=== PATIENT | female | born 1950 | race Caucasian/White ===

== ENCOUNTER 2016-08-17 11:02 | Day surgery (SDC) | payer BC ==
[2016-08-17 11:33] VITALS: BMI 22.3
[2016-08-17] MEDS ORDERED: PROPOFOL 20 ML ONE (12:21)
[2016-08-17] MEDS ORDERED: LIDOCAINE HCL/PF 2% SDV 5ML VIAL ONE (12:21)
[2016-08-17 12:57] VITALS: TEMP 98.2
[2016-08-17 14:21] VITALS: BP 127/66; PULSE 61
--- NOTE | 2016-08-19 11:20 | PATH ---
Surgical Pathology Report Patient Name: MARJORIE FUENTES [facility]. Rec. #: [id number] /Age/Gender: 1950 (Age: 65) / F Account: [id number] Location: U-ENDOSCOPY Taken: 08/17/2016 Received: 08/17/2016 Reported: 08/18/2016 Physicians: Ankit Boyd M.D. Specimen(s) Received A: BX STOMACH B: BX DISTAL ESOPHAGUS Clinical History Epigastric pain, abnormal CT scan Nodular gastritis, erythema distal esophagus, hiatal hernia, thick gastric fold Final Diagnosis A. STOMACH, BIOPSY: GASTRIC OXYNTIC MUCOSA WITH MODERATE CHRONIC GASTRITIS WITH FOCAL CHANGES SUGGESTIVE OF PPI EFFECT. IMMUNOSTAIN FOR H. PYLORI IS NEGATIVE FOR ORGANISMS. B. ESOPHAGUS, DISTAL, BIOPSY: SQUAMOUS EPITHELIUM WITH CHRONIC INFLAMMATION AND REFLUX TYPE CHANGES. NO COLUMNAR EPITHELIUM PRESENT (NO INTESTINAL METAPLASIA/GRISSOM'S ESOPHAGUS IDENTIFIED). Electronically Signed Emile Crabtree M.D. Gross Description A. Received in formalin, labeled "biopsy stomach" are 3 medley, irregular portions of soft tissue ranging from 0.4-0.5 cm in greatest dimension. The specimens are submitted in toto in one cassette. B. Received in formalin, labeled "biopsy distal esophagus" are 2 medley, irregular portions of soft tissue averaging 0.2 cm in greatest dimension. The specimens are submitted in toto in one cassette. /08/17/201608/17/2016
== END 2016-08-17 13:50 | disposition home or self-care (01) ==
LOC: JASU-ENDO 11:02
PROVIDERS: ATTEND Internal Medicine Gastroenterology
PROC: 0DB68ZX Excision of Stomach, Via Natural or Artificial Opening Endoscopic, Diagnostic (ICD-10-PCS; 2016-08-17)
PROC: 0DB38ZX Excision of Lower Esophagus, Via Natural or Artificial Opening Endoscopic, Diagnostic (ICD-10-PCS; principal; 2016-08-17 12:00)
DX: K29.70 Gastritis, unspecified, without bleeding (principal); K44.9 Diaphragmatic hernia without obstruction or gangrene; K21.0 Gastro-esophageal reflux disease with esophagitis
CPT/HCPCS: 88305-TC; 88342-TC

== ENCOUNTER 2016-11-02 07:43 | Day surgery (SDC) | payer BC ==
[2016-10-30 15:17] VITALS: BMI 22.3
[2016-11-02 09:02] VITALS: TEMP 98
[2016-11-02] MEDS ORDERED: PROPOFOL 20 ML ONE (09:04)
[2016-11-02 11:04] VITALS: BP 117/60; PULSE 60
--- NOTE | 2016-11-03 12:36 | PATH ---
Surgical Pathology Report Patient Name: MARJORIE FUENTES [facility]. Rec. #: [id number] /Age/Gender: 1950 (Age: 66) / F Account: [id number] Location: U-ENDOSCOPY Taken: 11/02/2016 Received: 11/02/2016 Reported: 11/03/2016 Physicians: Ankit Boyd M.D. Specimen(s) Received A: BX POLYP TRANSVERSE COLON B: BX POLYP CECUM C: BX POLYPS DESCENDING COLON D: BX SIGMOID COLON Clinical History Evaluate screening for malignant neoplasm of colon Colon polyps, diverticulosis, rule out microscopic colitis, hemorrhoids Final Diagnosis A. COLON, TRANSVERSE, BIOPSY: COLONIC MUCOSA WITH SURFACE MUCOSAL HYPERPLASTIC CHANGES. B. COLON, CECUM, BIOPSY: COLONIC MUCOSA WITH NO PATHOLOGIC CHANGES. NO ADENOMATOUS OR HYPERPLASTIC CHANGES IDENTIFIED. C. COLON, DESCENDING, BIOPSY: COLONIC MUCOSA WITH FOCAL SURFACE MUCOSAL HYPERPLASTIC CHANGES. D. COLON, SIGMOID, BIOPSY: COLONIC MUCOSA WITH LAMINA PROPRIA EDEMA. NO ACTIVE COLITIS, ARCHITECTURAL DISTORTION, GRANULOMATA, OR DYSPLASIA IDENTIFIED. NO MICROSCOPIC COLITIS IDENTIFIED (NO LYMPHOCYTIC OR COLLAGENOUS COLITIS IDENTIFIED). Electronically Signed Ruddy Curran M.D. Gross Description A. Received in formalin, labeled "biopsy transverse colon polyp" are 2 medley, irregular portions of soft tissue measuring 0.2 and 0.5 cm. in greatest dimension. The specimens are submitted in toto in one cassette. B. Received in formalin, labeled "biopsy cecum polyp" are 2 medley, irregular portions of soft tissue measuring 0.2 and 0.3 cm. in greatest dimension. The specimens are submitted in toto in one cassette. C. Received in formalin, labeled "biopsy descending colon polyp" are 5 medley, irregular portions of soft tissue ranging from 0.1-0.5 cm. in greatest dimension. The specimens are submitted in toto in one cassette. D. Received in formalin, labeled "biopsy sigmoid colon" is a medley, irregular portion of soft tissue measuring 0.3 cm. in greatest dimension. The specimen is submitted in toto in one cassette. 11/02/201611/02/2016
== END 2016-11-02 12:30 | disposition home or self-care (01) ==
LOC: JASU-ENDO 07:43
PROVIDERS: ATTEND Internal Medicine Gastroenterology
PROC: 0DBM8ZX Excision of Descending Colon, Via Natural or Artificial Opening Endoscopic, Diagnostic (ICD-10-PCS; 2016-11-02)
PROC: 0DBL8ZX Excision of Transverse Colon, Via Natural or Artificial Opening Endoscopic, Diagnostic (ICD-10-PCS; 2016-11-02)
PROC: 0DBN8ZX Excision of Sigmoid Colon, Via Natural or Artificial Opening Endoscopic, Diagnostic (ICD-10-PCS; 2016-11-02)
PROC: 0DBH8ZX Excision of Cecum, Via Natural or Artificial Opening Endoscopic, Diagnostic (ICD-10-PCS; principal; 2016-11-02 09:00)
DX: K57.30 Diverticulosis of large intestine without perforation or abscess without bleeding (principal); D12.0 Benign neoplasm of cecum; K64.8 Other hemorrhoids; D12.3 Benign neoplasm of transverse colon; D12.4 Benign neoplasm of descending colon
CPT/HCPCS: 88305-TC

== ENCOUNTER 2018-05-13 08:38 | Emergency (ER) | payer BC ==
[2018-05-13 08:45] VITALS: BP 140/52; PULSE 90; TEMP 99; BMI 21.6
--- NOTE | 2018-05-13 08:45 | PDOC ---
History of Present Illness - General Chief Complaint: Pain Stated Complaint: BODY ACHES Time Seen by Provider: 05/13/18 08:45 History Source: Patient Exam Limitations: No Limitations Past History - Past Medical History Allergies/Adverse Reactions: Allergies Allergy/AdvReac Type Severity Reaction Status Date / Time Penicillins Allergy Severe Rash Verified 05/13/18 08:41 Home Medications: Ambulatory Orders Albuterol Sulfate [Proair Respiclick] 90 mcg IH DAILY PRN 08/17/16 Aspirin [ASA -] 160 mg PO DAILY 08/17/16 Atorvastatin Ca [Lipitor] 10 mg PO HS 08/17/16 Mometasone/Formoterol [Dulera 100 Mcg/5 Mcg Inhaler] 2 inh IH BID PRN 08/17/16 Pantoprazole Sodium 40 mg PO DAILY 08/17/16 Anemia: No Asthma: Yes Cancer: No Cardiac Disorders: No CVA: No COPD: No CHF: No Dementia: No Diabetes: No GI Disorders: Yes (GASTRITIS, GERD) Disorders: No HTN: No Hypercholesterolemia: Yes Liver Disease: No Seizures: No Thyroid Disease: No - Surgical History Abdominal Surgery: No Appendectomy: No Cardiac Surgery: No Cholecystectomy: No Lung Surgery: No Neurologic Surgery: No Orthopedic Surgery: No - Suicide/Smoking/Psychosocial Hx Smoking Status: Yes Smoking History: Current every day smoker Have you smoked in the past 12 months: Yes Number of Cigarettes Smoked Daily: 5 Information on smoking cessation initiated: No 'Breaking Loose' booklet given: 06/19/14 Hx Alcohol Use: No Drug/Substance Use Hx: No Substance Use Type: None Hx Substance Use Treatment: No *Physical Exam - Vital Signs Last Vital Signs Temp Pulse Resp BP Pulse Ox 99 F 90 20 140/52 L 96 05/13/18 08:44 05/13/18 08:44 05/13/18 08:44 05/13/18 08:44 05/13/18 08:44 Moderate Sedation - Procedure Monitoring Vital Signs: Procedure Monitoring Vital Signs Temperature 99 F 05/13/18 08:44 Pulse Rate 90 05/13/18 08:44 Respiratory Rate 20 05/13/18 08:44 Blood Pressure 140/52 L 05/13/18 08:44 O2 Sat by Pulse Oximetry (%) 96 05/13/18 08:44 *DC/Admit/Observation/Transfer - Referrals Referrals: Lenny Bland MD [Primary Care Provider] - - Patient Instructions - Post Discharge Activity
[2018-05-13] MEDS ORDERED: KETOROLAC TROMETHAMINE 30 MG/1 ML VIAL IM ONE (09:17)
[2018-05-13] MEDS ORDERED: KETOROLAC TROMETHAMINE 30 MG/1 ML VIAL ONE (09:24)
--- NOTE | 2018-05-13 09:26 | PDOC ---
History of Present Illness - General Chief Complaint: Pain Stated Complaint: BODY ACHES Time Seen by Provider: 05/13/18 08:45 History Source: Patient Exam Limitations: No Limitations - History of Present Illness Initial Comments: 05/13/18 09:26 67 year old female with history of asthma, high cholesterol, Gerd, presents with reports of bodyaches since the end of February. States seen by pmd on multiple occasions for the same and diagnosed with arthritis. States given oxycodone and muscle relaxant with no relief of symptoms. Also reports cold symptoms for past week with no fever or chills. Taking robitussin with some relief of symptoms. Requesting bone scan or mri. Timing/Duration: other (2 months) Severity: moderate Modifying Factors: improves with: medication Associated Symptoms: reports: fever/chills Aspirin Received prior to arrival: Yes: no aspirin today Asa Contraindications(Core Measure): No: Allergy Beta Kenney Contraindications(Core Measure): Yes: Not Prescribed Beta Kenney Given by EMS(Core Measure): No Beta Kenney Taken at Home(Core Measure): No Beta Kenney Not Indicated at this Time(Core Measure): No Past History - Travel Traveled outside of the country in the last 30 days: No Close contact w/someone who was outside of country & ill: No - Past Medical History Allergies/Adverse Reactions: Allergies Allergy/AdvReac Type Severity Reaction Status Date / Time Penicillins Allergy Severe Rash Verified 05/13/18 08:41 Home Medications: Ambulatory Orders Albuterol Sulfate [Proair Respiclick] 90 mcg IH DAILY PRN 08/17/16 Aspirin [ASA -] 160 mg PO DAILY 08/17/16 Atorvastatin Ca [Lipitor] 10 mg PO HS 08/17/16 Mometasone/Formoterol [Dulera 100 Mcg/5 Mcg Inhaler] 2 inh IH BID PRN 08/17/16 Pantoprazole Sodium 40 mg PO DAILY 08/17/16 Diphenhydram/PE/Dm/Acetamin/GG [Mucinex Fast-Max Day-Nite Liq] 360 ml PO ASDIR # 1 bottle 05/13/18 Ibuprofen 200 mg PO TID #20 capsule 05/13/18 [place]-3S/Dha/Epa/Fish Oil/D3 [Pbeej-8-Gqyl Oil-Vit D3 Sftgl] 1 each PO ASDIR #1 bottle 05/13/18 Anemia: No Asthma: Yes Cancer: No Cardiac Disorders: No CVA: No COPD: No CHF: No Dementia: No Diabetes: No GI Disorders: Yes (GASTRITIS, GERD) Disorders: No HTN: No Hypercholesterolemia: Yes Liver Disease: No Seizures: No Thyroid Disease: No - Surgical History Abdominal Surgery: No Appendectomy: No Cardiac Surgery: No Cholecystectomy: No Lung Surgery: No Neurologic Surgery: No Orthopedic Surgery: No - Suicide/Smoking/Psychosocial Hx Smoking Status: Yes Smoking History: Current every day smoker Have you smoked in the past 12 months: Yes Number of Cigarettes Smoked Daily: 5 Information on smoking cessation initiated: No 'Breaking Loose' booklet given: 06/19/14 Hx Alcohol Use: No Drug/Substance Use Hx: No Substance Use Type: None Hx Substance Use Treatment: No Review of Systems - Review of Systems Constitutional: Yes: Fever, Weakness. No: Chills, Malaise HEENTM: Yes: Nose Congestion. No: Cataracts, Ear Discharge, Nose Pain, Hearing Loss, Throat Pain, Throat Swelling, Mouth Pain, Mouth Swelling Respiratory: No: Cough, Orthopnea, SOB at Rest, Stridor, Wheezing Cardiac (ROS): No: Lightheadedness, Palpitations, Syncope ABD/GI: No: Abdominal Distended, Blood Streaked Bowels, Constipated, Diarrhea, Difficulty Swallowing, Nausea, Poor Appetite, Poor Fluid Intake, Rectal Bleeding , Vomiting, Indigestion, Abdominal cramping : No: Burning, Dysuria, Hematuria, Pain, Urgency, Testicular Mass Musculoskeletal: No: Back Pain, Gout, Joint Pain, Muscle Weakness, Neck Pain Integumentary: No: Bruising, Erythema, Flushing, Lesions Neurological: No: Headache, Numbness, Paresthesia, Tingling, Tremors, Weakness Endocrine: No: Excessive Sweating, Intolerance to Heat, Increased Urine, Unexplained Weight Gain Hematologic/Lymphatic: No: Bleeding Diathesis *Physical Exam - Vital Signs Last Vital Signs Temp Pulse Resp BP Pulse Ox 99 F 90 20 140/52 L 96 05/13/18 08:44 05/13/18 08:44 05/13/18 08:44 05/13/18 08:44 05/13/18 08:44 - Physical Exam General Appearance: Yes: Nourished, Appropriately Dressed. No: Apparent Distress HEENT: positive: Pharynx Normal. negative: Tonsillar Exudate Neck: positive: Supple. negative: Lymphadenopathy (R), Lymphadenopathy (L) Respiratory/Chest: positive: Lungs Clear, Normal Breath Sounds. negative: Paradoxal Breathing Cardiovascular: positive: Regular Rhythm, Regular Rate Gastrointestinal/Abdominal: negative: Distended Rectal Exam: negative: heme positive stool Extremity: negative: Calf Tenderness, Erythema Neurologic: positive: clipper automatic II-XII NML intact, Fully Oriented, Alert Moderate Sedation - Procedure Monitoring Vital Signs: Procedure Monitoring Vital Signs Temperature 99 F 05/13/18 08:44 Pulse Rate 90 05/13/18 08:44 Respiratory Rate 20 05/13/18 08:44 Blood Pressure 140/52 L 05/13/18 08:44 O2 Sat by Pulse Oximetry (%) 96 05/13/18 08:44 Medical Decision Making - Medical Decision Making 05/13/18 09:30 67 year old female with history of asthma, high cholesterol, Gerd, presents with reports of bodyaches since the end of February Plan: analgesia referred to pmd for referral for bone scan rx: mucinex ibuprofen *DC/Admit/Observation/Transfer Diagnosis at time of Disposition: URI, acute - Discharge Dispostion Disposition: HOME Condition at time of disposition: Good Decision to Admit order: No - Prescriptions Prescriptions: Diphenhydram/PE/Dm/Acetamin/GG [Mucinex Fast-Max Day-Nite Liq] 360 ml PO ASDIR # 1 bottle Ibuprofen 200 mg PO TID #20 capsule [place]-3S/Dha/Epa/Fish Oil/D3 [Wtbwi-1-Nzbf Oil-Vit D3 Sftgl] 1 each PO ASDIR #1 bottle - Referrals Referrals: Lenny Bland MD [Primary Care Provider] - (Please call primary physician for appointment today ) - Patient Instructions Printed Discharge Instructions: Common Cold Additional Instructions: Please take medications as prescribed Drink plenty fluids for hydration - Post Discharge Activity
== END 2018-05-13 09:38 | disposition home or self-care (01) ==
LOC: JERFT 08:38 → JER 08:38 → JERFT 09:38
PROC: 3E0233Z Introduction of Anti-inflammatory into Muscle, Percutaneous Approach (ICD-10-PCS; principal; 2018-05-13)
DX: J06.9 Acute upper respiratory infection, unspecified (principal); M79.10 Myalgia, unspecified site; J45.909 Unspecified asthma, uncomplicated
CPT/HCPCS: 96372; 99281-25

== ENCOUNTER 2018-06-02 09:27 | Day surgery (SDC) | payer BC ==
[2018-06-01 17:39] VITALS: BMI 21.9
[~2018-06-02 09:27] MED LIST: LIDOCAINE HCL 1%, 10 MG/ML (20ML VIAL) INF ONE
[2018-06-02] MEDS ORDERED: LIDOCAINE HCL 1%, 10 MG/ML (20ML VIAL) ONE ×2 (09:46→10:30)
[2018-06-02] MEDS ORDERED: SUCCINYLCHOLINE CHLORIDE 200 MG/10 ML VIAL ONE (10:13)
[2018-06-02] MEDS ORDERED: PROPOFOL 20 ML ONE (10:13)
[2018-06-02] MEDS ORDERED: LIDOCAINE HCL 1%, 10 MG/ML (20ML VIAL) INF ONE (10:48)
[2018-06-02] MEDS ORDERED: LIDOCAINE HCL 1%, 10 MG/ML (50 mL VIAL) IJ ONE (10:48)
[2018-06-02] MEDS ORDERED: oxyCODONE HCL 5 MG TABLET PO PRN (11:08)
[2018-06-02] MEDS ORDERED: ONDANSETRON 4 MG/2 ML VIAL IVPUSH PRN (11:08)
[2018-06-02] MEDS ORDERED: LACTATED RINGERS SOLUTION 1,000 ML IV SCH (11:15)
--- NOTE | 2018-06-02 11:34 | OP ---
Operative Note - Note: Operative Date: 06/02/18 Pre-Operative Diagnosis: left sided headaches. Rule out temporal arteritis Operation: left temporal artery biopsy Post-Operative Diagnosis: Same as Pre-op Surgeon: Jacob Mcnamara Anesthesia: Fractional Estimated Blood Loss (mls): 10 Operative Report Dictated: Yes
--- NOTE | 2018-06-02 11:34 | HP ---
Admitting History and Physical - Admission Chief Complaint: Left sided headaches. Sent from rhemotologists office for temporal artery biopsy to rule out temporal arteritis Limitations to Obtaining History: No Limitations - Smoking History Smoking history: Current every day smoker Have you smoked in the past 12 months: Yes Aproximately how many cigarettes per day: 5 - Alcohol/Substance Use Hx Alcohol Use: No Home Medications - Allergies Allergies/Adverse Reactions: Allergies Allergy/AdvReac Type Severity Reaction Status Date / Time Penicillins Allergy Severe Rash Verified 05/13/18 08:41 - Home Medications Home Medications: Ambulatory Orders Aspirin [ASA -] 162 mg PO DAILY 06/01/18 Budesonide/Formeterol Fumarate [SYMBICORT 160/4.5mcg -] 1 inh PO BID 06/01/18 Cefdinir 300 mg PO BID 06/01/18 Duloxetine HCl [Cymbalta] 60 mg PO DAILY 06/01/18 Prednisone [Deltasone] 20 mg PO DAILY 06/01/18 Pregabalin [Lyrica] 100 mg PO DAILY 06/01/18 Review of Systems - Review of Systems Constitutional: reports: No Symptoms, Malaise Eyes: reports: No Symptoms, Blurred Vision HENT: reports: No Symptoms Neck: reports: No Symptoms Cardiovascular: reports: No Symptoms Respiratory: reports: No Symptoms Gastrointestinal: reports: No Symptoms Genitourinary: reports: No Symptoms Breasts: reports: No Symptoms Reported Musculoskeletal: reports: No Symptoms Integumentary: reports: No Symptoms Endocrine: reports: No Symptoms Hematology/Lymphatic: reports: No Symptoms Psychiatric: reports: No Symptoms Physical Examination Vital Signs: Vital Signs Temperature 98 F 06/02/18 10:00 Pulse Rate 77 06/02/18 10:00 Respiratory Rate 18 06/02/18 10:00 Blood Pressure 130/79 06/02/18 10:00 O2 Sat by Pulse Oximetry (%) 98 06/02/18 09:59 Constitutional: Yes: Well Nourished, No Distress, Calm Eyes: Yes: WNL, Conjunctiva Clear, EOM Intact HENT: Yes: WNL, Atraumatic, Normocephalic Neck: Yes: WNL, Supple, Trachea Midline Cardiovascular: Yes: WNL, Regular Rate and Rhythm Respiratory: Yes: WNL, Regular, CTA Bilaterally Gastrointestinal: Yes: WNL, Normal Bowel Sounds Musculoskeletal: Yes: WNL Extremities: Yes: WNL Edema: No Integumentary: Yes: WNL Wound/Incision: Yes: Clean/Dry, Well Approximated Neurological: Yes: WNL, Alert, Oriented ...Motor Strength: WNL Psychiatric: Yes: WNL Problem List - Problems (1) Temporal arteritis Assessment/Plan: for left temporal artery biopsy Code(s): M31.6 - OTHER GIANT CELL ARTERITIS
[2018-06-02 12:08] VITALS: BP 142/67; PULSE 72; TEMP 98
--- NOTE | 2018-06-03 17:28 | PATH ---
Surgical Pathology Report Patient Name: MARJORIE FUENTES [facility]. Rec. #: [id number] /Age/Gender: 1950 (Age: 67) / F Account: [id number] Location: U SURGICAL Taken: 06/02/2018 Received: 06/02/2018 Reported: 06/03/2018 Physicians: Jacob Mcnamara Specimen(s) Received TEMPORAL ARTERY BIOPSY Clinical History Rule out temporal arteritis Final Diagnosis TEMPORAL ARTERY, LEFT, BIOPSY: MUSCULAR ARTERY WITH RARE MICROCALCIFICATIONS WITHIN VESSEL WALL. NO EVIDENCE OF ARTERITIS. MULTIPLE LEVELS EXAMINED. Electronically Signed Yesenia Mensah M.D. Gross Description Received in formalin labeled "left temporal artery," are 2 medley portions of vasculature measuring 1.0 and 0.6 cm in length and averaging less than 1 cm in diameter. The specimens are sectioned and entirely submitted in one cassette. /06/02/201806/02/2018
--- NOTE | 2018-06-05 10:17 | OP ---
DATE OF OPERATION: 06/02/2018 PREOPERATIVE DIAGNOSIS: Rule out temporal arteritis, left side. POSTOPERATIVE DIAGNOSIS: Rule out temporal arteritis, left side. PROCEDURE: Left temporal artery biopsy. SURGEON: Jacob Cazares DO ANESTHESIA: Fractional. BLOOD LOSS: 10 mL INDICATIONS: The patient is a 67-year-old female sent over from office to rule out temporal arteritis. The patient has been complaining of severe headaches on the left side with some blurry vision. DESCRIPTION OF PROCEDURE: Patient came in through Ambulatory Surgery. Patient was consented for the procedure understanding risks, benefits and alternatives, and was then taken to the operating room. Once in the operating room, placed on the operating table in the supine manner and the area of the left temporal region was prepped and draped in a sterile surgical manner. We then went ahead and yulissa a 3 cm incision over our palpable temporal artery pulse. We then went ahead and injected 10 mL of lidocaine 1% in the area. We then went ahead and used a No. 15 blade and a 3 cm incision was made. Bovie electrocautery was used to control hemostasis and were able to take our Bovie electrocautery down through all the subcutaneous tissue. We used a Weitlaner and we were able to expose the area. We then went through the subcutaneous using Metzenbaum scissors. We went through the fascia and we were able to dissect out our temporal artery. Temporal artery was dissected anterior and posteriorly. All branches were ligated using 4-0 silk. We then were able to take a 2 to 2.5 cm segment of the temporal artery. We ligated it proximally and distally. During the operation we put a Doppler to the artery to make sure that we could hear the arterial signal. We then used 4-0 silk and we ligated the artery proximally and distally, and then excised the artery and sent it down to Pathology in formalin. The operative wound was then well irrigated. Vicryl 3-0 was used and the subcutaneous tissue was approximated in an interrupted manner, and the skin was closed with 4-0 Biosyn in a subcuticular running fashion. The area was wet and dried. Some Dermabond was placed. Two Steri-Strips were placed. Patient tolerated the procedure with no complication. Patient transferred to the PACU in stable condition. JACOB CAZARES DO PROFESSOR OF KINESIOLOGY/[id number]
== END 2018-06-02 12:11 | disposition home or self-care (01) ==
LOC: JASU-SURG 09:27
PROVIDERS: ATTEND Surgery Vascular Surgery
PROC: 03BT0ZX Excision of Left Temporal Artery, Open Approach, Diagnostic (ICD-10-PCS; principal; 2018-06-02 09:00)
DX: M31.6 Other giant cell arteritis (principal)
CPT/HCPCS: 88305-TC

== ENCOUNTER 2020-09-02 04:37 | Day surgery (SDC) | payer OTHER ==
[2020-08-28 16:03] VITALS: BMI 23.9
[2020-09-02 09:25] VITALS: TEMP 97.1
[2020-09-02 10:37] VITALS: BP 123/58; PULSE 62
== END 2020-09-02 10:45 | disposition home or self-care (01) ==
LOC: JASU-ENDO 04:37
PROVIDERS: ATTEND Internal Medicine Gastroenterology
PROC: 0DB98ZX Excision of Duodenum, Via Natural or Artificial Opening Endoscopic, Diagnostic (ICD-10-PCS; 2020-09-02)
PROC: 0DB78ZX Excision of Stomach, Pylorus, Via Natural or Artificial Opening Endoscopic, Diagnostic (ICD-10-PCS; 2020-09-02)
PROC: 0DB28ZX Excision of Middle Esophagus, Via Natural or Artificial Opening Endoscopic, Diagnostic (ICD-10-PCS; 2020-09-02)
PROC: 0DB38ZX Excision of Lower Esophagus, Via Natural or Artificial Opening Endoscopic, Diagnostic (ICD-10-PCS; 2020-09-02)
PROC: 0DJD8ZZ Inspection of Lower Intestinal Tract, Via Natural or Artificial Opening Endoscopic (ICD-10-PCS; principal; 2020-09-02 08:30)
DX: Z12.11 Encounter for screening for malignant neoplasm of colon (principal); K59.00 Constipation, unspecified; K64.8 Other hemorrhoids; K29.50 Unspecified chronic gastritis without bleeding; K44.9 Diaphragmatic hernia without obstruction or gangrene; K21.9 Gastro-esophageal reflux disease without esophagitis; Z86.010 Personal history of colon polyps
CPT/HCPCS: 43239; G0105; 88305-TC; 88342-TC

== ENCOUNTER 2023-02-22 12:00 | Inpatient (IN) | payer OTHER ==
[2023-02-22] MEDS ORDERED: ALBUTEROL SO4 2.5/IPRATROPIUM 0.5 INH SOL 3 ML VIAL.NEB. NEB ONE ×3 (12:21→13:00)
[2023-02-22] MEDS ORDERED: NITROGLYCERIN 25MG/D5W 250ML 25 MG/250 ML ML IVPB ONE (12:26)
[2023-02-22] MEDS ORDERED: NITROGLYCERIN 25MG/D5W 250ML 25 MG/250 ML ML IVPB SCH (12:30)
[2023-02-22] MEDS ORDERED: MAGNESIUM SULF 50% (8.12 MEQ/2 ML-1 GM VIAL) IVPB ONE (12:38)
[2023-02-22] MEDS ORDERED: VANCOMYCIN 1,000 MG in DEXTROSE 5%-WATER - 250 ML IVPB ONE (12:42)
[2023-02-22] MEDS ORDERED: CEFEPIME HCL 2 GM VIAL (RESTRICTED TO ID) IVPB ONE (12:43)
[2023-02-22 12:44] LABS: BASO % 1.3 % (0-2.0); EOS % 2.6 % (0-4.5); HEMATOCRIT 33.3 % (32.4-45.2); HEMOGLOBIN 10.6 GM/dL (10.7-15.3); LYMPH % 16.7 % (8-40); MCH 26.6 pg (25.7-33.7); MCHC 31.8 g/dl (32.0-36.0); MEAN CELL VOLUME 83.4 fl (80-96); MEAN PLT VOLUME 8.9 fl (7.5-11.1); MONO % 8.3 % (3.8-10.2); NEUT % 71.1 % (42.8-82.8); PLATELET COUNT 264 10^3/uL (134-434); RDW 17.9 % (11.6-15.6); WHITE BLOOD COUNT 9.5 K/mm3 (4.0-10.0)
[2023-02-22 12:50] LABS: PH,URINE 6.5 (5.0-8.0); URINE APPEARANCE CLEAR; URINE BILIRUBIN NEGATIVE (NEGATIVE); URINE COLOR YELLOW; URINE GLUCOSE (UA) NEGATIVE (NEGATIVE); URINE KETONE NEGATIVE (NEGATIVE); URINE LEUK ESTERASE NEGATIVE (NEGATIVE); URINE NITRITE NEGATIVE (NEGATIVE); URINE PROTEIN NEGATIVE (NEGATIVE); URINE UROBILINOGEN 0.2 mg/dL (0.2-1.0)
[2023-02-22 12:51] LABS: INR 1.19 (0.83-1.09); PROTHROMBIN TIME (PATIENT) 13.8 SEC (9.7-13.0)
[2023-02-22 12:54] LABS: ACTIVATED PTT 43.5 SECONDS (25.2-36.5)
[2023-02-22] MEDS ORDERED: MAGNESIUM SULFATE IN WATER 2 GM/50 ML IVPB IVPB ONE (13:12)
[2023-02-22 13:20] LABS: POTASSIUM 4.9 mmol/L (3.5-5.1)
[2023-02-22 13:22] LABS: CALCIUM 9.3 mg/dL (8.5-10.1)
[2023-02-22 13:23] LABS: ALBUMIN 3.6 g/dl (3.4-5.0); BLOOD UREA NITROGEN 9.7 mg/dL (7-18)
[2023-02-22 13:24] LABS: VENOUS BASE EXCESS -0.6 mmol/L (-2-2); VENOUS O2 SATURATION 88.1 % (70-80); VENOUS PCO2 34.8 mmHg (38-52); VENOUS PH 7.44 (7.310-7.410)
[2023-02-22 13:26] LABS: CREATININE 0.9 mg/dL (0.55-1.3)
[2023-02-22 13:28] LABS: BILIRUBIN,TOTAL 0.6 mg/dL (0.2-1); TOT PROT 8.1 g/dl (6.4-8.2)
[2023-02-22 13:31] LABS: N-TERMINAL BNP 182.2 pg/ml (5-125)
[2023-02-22 13:54] LABS: LACTIC ACID 3.4 mmol/L (0.4-2.0)
[2023-02-22] MEDS ORDERED: VANCOMYCIN 1 GRAM (PRE-DOCKED) 1,000 MG/250 ML BAG IVPB ONE (14:31)
[2023-02-22] MEDS ORDERED: CEFEPIME 2 GM/100 ML BAG IVPB ONE (14:31)
[2023-02-22] MEDS ORDERED: SODIUM CHLORIDE 0.9% 500 ML INFUS.BAG IV ONE (14:32)
[2023-02-22] MEDS ORDERED: ACETAMINOPHEN 325 MG TABLET (FP) PO PRN (15:39)
[2023-02-22] MEDS ORDERED: ALBUTEROL SO4 HFA INHALER IH PRN (15:48)
[2023-02-22] MEDS ORDERED: AZITHROMYCIN IVPB 500 MG/250 ML BAG IVPB ONE (16:22)
[2023-02-22] MEDS ORDERED: PATIENT'S OWN MEDICATION (NON-FORMULARY) (Tenapanor Hcl [Ibsrela] 50 MG Tablet) PO SCH (16:30)
[2023-02-22] MEDS: ALBUTEROL SO4 2.5/IPRATROPIUM 0.5 INH SOL 3 ML VIAL.NEB. NEB SCH ×2 (16:50→20:35)
[2023-02-22 19:15] LABS: ARTERIAL BLD GAS O2 SATURATION 99.5 % (95-98); ARTERIAL BLOOD GAS BASE EXCESS -2.3 mmol/L (-2-2); ARTERIAL BLOOD GAS PO2 197.8 mmHg (80-100); ARTERIAL BLOOD GAS pH 7.538 (7.350-7.450)
[2023-02-22 19:17] LABS: ALLENS TEST POSITIVE; VENT MODE S/T; VENT RATE 15
[2023-02-22] MEDS: methylPREDNISolone NA SUCC 40 MG/1 ML VIAL IVPUSH SCH (20:27)
[2023-02-22] MEDS ORDERED: DEXMEDETOMIDINE PREMIX 400 MCG/100 ML BAG IVPB SCH (20:45)
[2023-02-22] MEDS: ACETAMINOPHEN 1000 MG/100 ML BAG IVPB PRN (21:19)
[2023-02-22] MEDS: MUPIROCIN 2% TOPICAL OINTMENT FOR DECOLONIZATION NS SCH (21:20)
[2023-02-22] MEDS ORDERED: CHLORHEXIDINE GLUCONATE 4% CLEANSER FOR DECOLONIZATION TP SCH (22:00)
[2023-02-22] MEDS ORDERED: QUEtiapine FUMARATE 25 MG TABLET PO SCH (22:00)
[2023-02-23] MEDS: methylPREDNISolone NA SUCC 40 MG/1 ML VIAL IVPUSH SCH ×4 (03:33→21:10)
[2023-02-23 06:46] LABS: HEMATOCRIT 28.7 % (32.4-45.2); HEMOGLOBIN 9.1 GM/dL (10.7-15.3); MCH 26.6 pg (25.7-33.7); MCHC 31.7 g/dl (32.0-36.0); MEAN CELL VOLUME 83.8 fl (80-96); MEAN PLT VOLUME 9.2 fl (7.5-11.1); PLATELET COUNT 215 10^3/uL (134-434); RBC 3.43 M/mm3 (3.60-5.2); RDW 17.7 % (11.6-15.6); WHITE BLOOD COUNT 10.7 K/mm3 (4.0-10.0)
[2023-02-23 07:01] LABS: POTASSIUM 4.2 mmol/L (3.5-5.1)
[2023-02-23 07:03] LABS: BLOOD UREA NITROGEN 10.3 mg/dL (7-18); CALCIUM 8.1 mg/dL (8.5-10.1)
[2023-02-23 07:04] LABS: MAGNESIUM 2.6 mg/dL (1.8-2.4)
[2023-02-23 07:07] LABS: CREATININE 0.6 mg/dL (0.55-1.3); PHOSPHOROUS 3.9 mg/dL (2.5-4.9)
[2023-02-23 07:08] LABS: BILIRUBIN,TOTAL 0.3 mg/dL (0.2-1); TOT PROT 6.8 g/dl (6.4-8.2)
[2023-02-23] MEDS: ALBUTEROL SO4 2.5/IPRATROPIUM 0.5 INH SOL 3 ML VIAL.NEB. NEB SCH ×4 (08:21→19:27)
[2023-02-23] MEDS: MUPIROCIN 2% TOPICAL OINTMENT FOR DECOLONIZATION NS SCH (09:15)
[2023-02-23] MEDS ORDERED: PATIENT'S OWN MEDICATION (NON-FORMULARY) (Pitavastatin Calcium [Livalo] 4 MG Tablet) PO SCH (10:00)
[2023-02-23] MEDS ORDERED: PANTOPRAZOLE 40 MG TABLET PO SCH (10:00)
[2023-02-23] MEDS ORDERED: DEXAMETHASONE SOD PHOSPHATE 10 MG/1 ML VIAL IVPUSH SCH (10:00)
[2023-02-23] MEDS ORDERED: ENOXAPARIN NA (PORCINE) 40 MG/0.4 ML DISP.SYRIN SQ SCH (10:00)
[2023-02-23] MEDS ORDERED: CEFTRIAXONE 1 GM in DEXTROSE 5%-WATER - 50 ML IVPB SCH (10:00)
[2023-02-23] MEDS ORDERED: AZITHROMYCIN IVPB 250 MG in DEXTROSE 5%-WATER - 250 ML IVPB SCH (10:00)
[2023-02-23] MEDS ORDERED: CLOPIDOGREL BISULFATE 75 MG TABLET (FP) PO SCH (10:00)
[2023-02-23 11:00] VITALS: BMI 22.4
[2023-02-23] MEDS ORDERED: PITAVASTATIN CALCIUM 4 MG PO SCH (13:34)
[2023-02-23] MEDS ORDERED: ALBUTEROL SO4 0.083% IH SOL 2.5 MG/3 ML VIAL.NEB. NEB ONE (14:22)
[2023-02-23] MEDS: ACETAMINOPHEN 1000 MG/100 ML BAG IVPB PRN (15:01)
[2023-02-23] MEDS ORDERED: ALBUTEROL SO4 HFA INHALER IH PRN (20:22)
[2023-02-23] MEDS ORDERED: ACETAMINOPHEN 1000 MG/100 ML BAG IVPB PRN (20:22)
[2023-02-23] MEDS: QUEtiapine FUMARATE 25 MG TABLET PO SCH (21:10)
[2023-02-23] MEDS ORDERED: MUPIROCIN 2% TOPICAL OINTMENT FOR DECOLONIZATION NS SCH (22:00)
[2023-02-23] MEDS ORDERED: CHLORHEXIDINE GLUCONATE 4% CLEANSER FOR DECOLONIZATION TP SCH (22:00)
[2023-02-24] MEDS: methylPREDNISolone NA SUCC 40 MG/1 ML VIAL IVPUSH SCH ×4 (02:11→17:43)
[2023-02-24] MEDS ORDERED: TENAPANOR HCL PO SCH (07:00)
[2023-02-24] MEDS: ALBUTEROL SO4 2.5/IPRATROPIUM 0.5 INH SOL 3 ML VIAL.NEB. NEB SCH ×4 (07:55→20:10)
[2023-02-24] MEDS ORDERED: METHYLNALTREXONE BROMIDE 8 MG/0.4 ML SYRINGE SQ ONE (08:17)
[2023-02-24] MEDS: POLYETHYLENE GLYCOL (HEALTHYLAX) 3350 17 GM PACKET PO SCH ×2 (09:50→21:30)
[2023-02-24] MEDS: oxyCODONE HCL 5 MG TABLET PO PRN ×2 (09:51→16:20)
[2023-02-24] MEDS: CLOPIDOGREL BISULFATE 75 MG TABLET (FP) PO SCH (09:55)
[2023-02-24] MEDS: MULTIVITAMINS (DAILY MVI) TABLET (FP) PO SCH (09:55)
[2023-02-24] MEDS: PANTOPRAZOLE 40 MG TABLET PO SCH (09:56)
[2023-02-24] MEDS ORDERED: ENOXAPARIN NA (PORCINE) 40 MG/0.4 ML DISP.SYRIN SQ SCH (10:00)
[2023-02-24] MEDS ORDERED: AZITHROMYCIN IVPB 250 MG in DEXTROSE 5%-WATER - 250 ML IVPB SCH (10:00)
[2023-02-24] MEDS ORDERED: CEFTRIAXONE 1 GM in DEXTROSE 5%-WATER - 50 ML IVPB SCH (10:00)
[2023-02-24] MEDS ORDERED: MULTIVITAMINS (DAILY MVI) TABLET (FP) PO SCH (10:00)
[2023-02-24] MEDS: QUEtiapine FUMARATE 25 MG TABLET PO SCH (21:31)
[2023-02-24] MEDS ORDERED: PITAVASTATIN CALCIUM 4 MG PO SCH (22:00)
[2023-02-24] MEDS ORDERED: ATORVASTATIN CA 20 MG TABLET (FP) PO SCH (22:00)
[2023-02-24 22:36] VITALS: RESP 20
[2023-02-25] MEDS: methylPREDNISolone NA SUCC 40 MG/1 ML VIAL IVPUSH SCH ×2 (02:33→11:34)
[2023-02-25] MEDS: ALBUTEROL SO4 2.5/IPRATROPIUM 0.5 INH SOL 3 ML VIAL.NEB. NEB SCH ×3 (07:58→15:03)
[2023-02-25] MEDS: POLYETHYLENE GLYCOL (HEALTHYLAX) 3350 17 GM PACKET PO SCH (11:34)
[2023-02-25] MEDS: CLOPIDOGREL BISULFATE 75 MG TABLET (FP) PO SCH (11:34)
[2023-02-25] MEDS: MULTIVITAMINS (DAILY MVI) TABLET (FP) PO SCH (11:34)
[2023-02-25] MEDS: PANTOPRAZOLE 40 MG TABLET PO SCH (11:35)
[2023-02-25 14:38] VITALS: BP 150/63; PULSE 77; TEMP 97.7
== END 2023-02-25 15:55 | disposition home or self-care (01) | DRG 190 ==
LOC: JER 12:00 → JERBED 14:42 → JICU 16:41 → J7W 02-23 16:46
PROVIDERS: ADMIT Internal Medicine Pulmonary Disease; ATTEND Family Medicine
DX: J44.1 Chronic obstructive pulmonary disease with (acute) exacerbation (principal); J96.01 Acute respiratory failure with hypoxia; E87.20 Acidosis, unspecified; K21.9 Gastro-esophageal reflux disease without esophagitis; E78.5 Hyperlipidemia, unspecified; F17.210 Nicotine dependence, cigarettes, uncomplicated
CPT/HCPCS: 0241U-QW; 36415; 36600; 71045-TC-FY; 80053; 81003; 82803; 83605; 83735; 83880; 84100; 84484; 85025; 85027; 85610; 85730; 87040; 87070; 87086; 87186; 87205; 87633; 93005; 93010; 94640; 94660; 94761; 97116-GP; 97161-GP; 99291

== ENCOUNTER 2024-02-11 05:03 | Day surgery (SDC) | payer OTHER ==
[2024-02-11] MEDS ORDERED: DEXAMETHASONE SOD PHOSPHATE 10 MG/1 ML VIAL ONE ×2 (07:19→10:50)
[2024-02-11] MEDS ORDERED: LIDOCAINE HCL/PF 1% SDV 5ML VIAL ONE (07:19)
[2024-02-11] MEDS ORDERED: ACETAMINOPHEN 500 MG TABLET (FP) PO PRN (09:12)
[2024-02-11] MEDS: LIDOCAINE HCL 1% PRESERVATIVE FREE - 30ML VIAL IJ ONE ×3 (10:55)
[2024-02-11] MEDS: IOHEXOL 180 MG/1 ML ML IJ ONE ×3 (10:58)
[2024-02-11] MEDS: DEXAMETHASONE SOD PHOSPHATE 10 MG/1 ML VIAL IVPUSH ONE ×2 (11:00)
[2024-02-11 13:21] VITALS: BP 121/71; PULSE 87; RESP 18; TEMP 98
== END 2024-02-11 11:30 | disposition home or self-care (01) ==
LOC: JASU-SURG 05:03
PROVIDERS: ATTEND Pain Medicine Pain Medicine
PROC: 3E0R3BZ Introduction of Anesthetic Agent into Spinal Canal, Percutaneous Approach (ICD-10-PCS; 2024-02-11)
PROC: 3E0R33Z Introduction of Anti-inflammatory into Spinal Canal, Percutaneous Approach (ICD-10-PCS; principal; 2024-02-11 11:30)
DX: M54.16 Radiculopathy, lumbar region (principal)
CPT/HCPCS: 76000-TC-FY; J1100